=== PATIENT | female | born 1995 | race Caucasian/White ===

== ENCOUNTER 2018-05-29 00:52 | Inpatient (IN) | payer OTHER ==
[2018-05-29] MEDS: Lactated Ringers 1,000 ML IV SCH ×2 (01:20→02:30)
[2018-05-29] MEDS ORDERED: Ropivacaine 200 ML EPIDUR ONE (03:00)
[2018-05-29] MEDS ORDERED: Oxytocin 10 Units/1 ML SDV IM ONE (03:38)
[2018-05-29] MEDS ORDERED: Acetaminophen/Codeine 300-30 MG Tab PO PRN (04:06)
[2018-05-29] MEDS: Ibuprofen 600 MG Tab PO SCH ×5 (11:22→23:50)
[2018-05-29] MEDS: Docusate Sodium 100 MG Cap PO SCH ×2 (11:22→21:14)
[2018-05-29] MEDS: Prenatal Multivitamin with Calcium/Folic Acid/Fe Fumarate Cap PO SCH (11:22)
[2018-05-30 07:59] VITALS: BP 120/81
[2018-05-30] MEDS: Docusate Sodium 100 MG Cap PO SCH (08:00)
[2018-05-30] MEDS: Ibuprofen 600 MG Tab PO SCH (08:00)
[2018-05-30] MEDS: Prenatal Multivitamin with Calcium/Folic Acid/Fe Fumarate Cap PO SCH (08:01)
--- NOTE | 2018-05-30 20:57 | PN ---
DATE SEEN: 05/30/2018 SUBJECTIVE: Karena Travis is a 23-year-old, 2 female 1 day . Doing well. Up and ambulating. Minimal discomfort. Analgesics, ibuprofen. Comfortable with well being. PHYSICAL EXAMINATION: U-2, tone is satisfactory. Perineum intact. LABORATORY DATA: hemoglobin 8.6 (surprisingly). ASSESSMENT: day 1. No problems. PLAN: Discharge home with lengthy instructions. Low hemoglobin, asymptomatic. Fluids. vitamins. Adequate nutrition. Ibuprofen p.r.n. for pain. vitamin daily, restrictions, limitations, and recommendations. /[id number] SELIN/BARI
--- NOTE | 2018-05-31 01:00 | HP ---
ADMISSION DATE: 05/29/2018 HISTORY OF PRESENT ILLNESS: Karena Travis is a 2, para 1 female, admitted to [facility] [place][note 3] in spontaneous labor. Been sukumar off and on through the day. Dates are accurate, 39+ weeks' gestation. Repeat rectovaginal culture negative. Please see accompanying records. PHYSICAL EXAMINATION: VITAL SIGNS: On admission, vital signs are stable. heart tones were excellent. PELVIC: Revealed a 5 cm dilatation, -1 station, vertex, satisfactory well being. Epidural and intravenous fluids were instituted. Analgesic benefit was noted. She went to complete. I was summoned to attend. On exam, she was completely dilated, intact membranes. AROM was performed. Clear fluid. Second stage of labor went wonderfully. Over the course of about 20 minutes, descent was appropriate. JAQUELIN presentation. Delivered over a midline episiotomy which had been infiltrated with 2% lidocaine. No nuchal cord. Delivered without incident. Male infant, weight 7 pounds 8 ounces, score 9 and 9. The child was placed on mom's tummy with nursing in attendance for observation and warming. Once cord had quit pulsating, it was doubly clamped, dad cut the cord in attendance, routine resuscitation. Cord blood was obtained. Three cord vessels were identified. There was spontaneous placental separation, 3 cord vessels was intact. Intramuscular Pitocin 10 units was provided. The perineum was inspected. No signs of extension. Was re-infiltrated with lidocaine. Repaired in complex fashion with 3-0 Vicryl suture. Surgical result was excellent. Blood loss was 100+ cc. ASSESSMENT: Term intrauterine . Normal spontaneous vaginal delivery. Midline episiotomy. 7 pounds 8.4 ounces male . PLAN: Nursing plan. Routine course. Expect no problems or concerns. Epidural catheter removed. Intravenous fluids will be maintained. Analgesics and appropriate care. /[id number] SELIN/BARI
== END 2018-05-30 12:55 | disposition home or self-care (01) | DRG 807 ==
LOC: FB.OBCHECK 00:52 → FB.OB 00:53 → OBSVTOIN 01:05 → FB.OB 01:05 → FB.OBCHECK 01:05
PROVIDERS: ADMIT Family Medicine; ATTEND Family Medicine
PROC: 0W8NXZZ Division of Female Perineum, External Approach (ICD-10-PCS; 2018-05-29)
PROC: 10E0XZZ Delivery of Products of Conception, External Approach (ICD-10-PCS; principal; 2018-05-30)
PROC: 10907ZC Drainage of Amniotic Fluid, Therapeutic from Products of Conception, Via Natural or Artificial Opening (ICD-10-PCS; 2018-05-30)
PROC: 6A550ZT Pheresis of Cord Blood Stem Cells, Single (ICD-10-PCS; 2018-05-30)
DX: O80 Encounter for full-term uncomplicated delivery (principal); Z37.0 Single live birth; Z3A.39 39 weeks gestation of pregnancy
CPT/HCPCS: 36415; 59409; 85014; 85018; A9270-GY; J2590; J2795; J7120